=== PATIENT | male | born 1975 | race Caucasian/White ===

== ENCOUNTER 2020-05-26 15:16 | Emergency (ER) | payer OTHER ==
[~2020-05-26 15:16] MED LIST: BACTRIM DS TAB1 EACH PO; FLOMAX 0.4 MG0.4 MG PO; NORCO 5-325 TA1 EACH PO
== END 2020-05-26 18:32 | disposition home or self-care (01) ==
LOC: FER 15:16
DX: S06.9X9A Unspecified intracranial injury with loss of consciousness of unspecified duration, initial encounter (principal); S01.01XA Laceration without foreign body of scalp, initial encounter; F17.210 Nicotine dependence, cigarettes, uncomplicated; W00.0XXA Fall on same level due to ice and snow, initial encounter; Y92.009 Unspecified place in unspecified non-institutional (private) residence as the place of occurrence of the external cause

== ENCOUNTER → 2021-11-27 | Day surgery (SDC) | payer OTHER ==
[~2021-11-27] VITALS: Ht 180.3 cm; Wt 64.9 kg
[~2021-11-27] MED LIST changes: +PRINIVIL20 MG PO; +WELLBUTRIN XL150 MG PO
== END | disposition home or self-care (01) ==
LOC: FAS 09:43
DX: Z12.11 Encounter for screening for malignant neoplasm of colon (principal); K63.5 Polyp of colon; K57.30 Diverticulosis of large intestine without perforation or abscess without bleeding; I10 Essential (primary) hypertension; F41.9 Anxiety disorder, unspecified; F17.210 Nicotine dependence, cigarettes, uncomplicated; Z80.0 Family history of malignant neoplasm of digestive organs; Z86.010 Personal history of colon polyps
CPT/HCPCS: J2250; J2704; J7120